=== PATIENT | male | born 1940 | race Caucasian/White ===

== ENCOUNTER 2024-02-18 21:18 | Emergency (ER) | payer MEDICARE, OTHER, SELFPAY ==
[2024-02-18 21:18] VITALS: BMI 24.2
[2024-02-18 21:24] VITALS: BP 165/90
[2024-02-19 00:35] VITALS: BP 169/90
[2024-02-19 01:00] VITALS: BP 171/80
--- NOTE | 2024-02-19 01:03 | ED.GENMED ---
History of Present Illness
<ARTEMIO Cisneros (Lenka) - Last Filed: 02/19/24 02:31>
General
Chief Complaint: Anal/Rectal Problem
Source: patient and spouse
Exam Limitations: none
Time Seen by Provider: 02/19/24 01:03
Nursing documentation reviewed up to this point in time: agreed with
History of Present Illness
History of Present Illness:
Pt is an 83yo male with PMHx of renal cyst s/p nephrectomy and BPH who presents to the ED with concerns for rectal bleeding at 1999 tonight. Pt states that he has been unable to defecate x 4d, prior to that stools were normal consistency. He
typically has one BM/day. 1d ago (02/16) he took Metamucil with no relief. During the day today (02/17), he took three 5mg bisacodyl tablets, with no relief. Tonight at 1999 he tried an OTC fleet enema. He felt burning with injection of the saline and
then noted red blood on the toilet paper. He denies extreme tearing pain, continued pain with defecation, gushing of blood, black tarry stool, no BM with the fleet, denies filling the toilet bowl with blood. He found a pad and wore in on his way to
the ED, pad with streaks of blood, not soaked. Pt wiped in the bathroom in the ED, stated no more red streaks on toilet paper. No fevers, chills, chest pain, dyspnea, abdominal pain or cramping, changes in urinary habits, swelling of the extremities.
He admits to having both internal and external hemorrhoids in the past
.
Last colonoscopy ~ 6 years ago at [place]. Has had polyps removed.
Has had inguinal hernia repairs and nephrectomy, no other abdominal surgeries.
Past History
<ARTEMIO Cisneros (Lenka) - Last Filed: 02/19/24 02:31>
Past History
ED Past Medical History: Other (Benign prostatic hypertrophy)
ED Past Surgical History: Other (nephrectomy, inguinal hernia repair (L))
Social History
Personal:
Living: with family
Employment: Employed
Phy Exam
<ARTEMIO Cisneros (Lenka) - Last Filed: 02/19/24 02:31>
General Physical Exam
General Presentation: well appearing and no apparent distress
General age: appears stated age
General Skin: warm and dry
General Habitus: normal
General Mental: alert
General Hydration: appears well hydrated
Cardiovascular Exam
Cardiovascular Exam: regular rate/rhythm, no edema, no gallop, no murmur and normal peripheral pulses
Pulmonary Exam
Pulmonary Exam: lungs clear, no respiratory distress, no rales, no rhonchi, no wheezing and no cough
Gastrointestinal Exam
Gastrointestinal Exam: non tender, soft, no pulsatile mass, non distended and guarding (pt guarding but denies pain or tenderness with light/deep palpation)
Palpation: left upper quadrant: No tenderness, left lower quadrant: No tenderness, right upper quadrant: No tenderness and right lower quadrant: No tenderness
Auscultation of Abdomen: hyperactive
Musculoskeletal Exam
Musculoskeletal Exam: full ROM
Skin Exam
Skin Exam: normal color, warm/dry and no rash
Course
<ARTEMIO Cisneros (Lenka) - Last Filed: 02/19/24 02:31>
Orders/Labs/Results
Orders:
Orders
02/19/24 02:18
Complete Blood Count/With Diff Urgent
Comprehensive Metabolic Panel Urgent
Lipase Urgent
PTT Urgent
Prothrombin Time Urgent
02/19/24 02:24
CR Obstruct Series W/pa Chest Urgent
Comment:
Reason For Exam: constipation
02/19/24 03:29
Enema- Treatment ONCE
Type: Milk of Molasses
Abnormal Lab Results
02/19/24
02:18
RBC 3.69 L 10^6/uL
(4.70-6.10)
Hgb 11.7 L g/dL
(13.0-18.0)
Hct 33.4 L %
(39.0-52.0)
MCH 31.7 H pg
(27.0-31.0)
BUN 31 H mg/dl
(9-20)
Total Protein 5.9 L g/dl
(6.3-8.2)
02/19/24 02:18
02/19/24 02:18
Vital Signs
Initial and Last Documented VS:
Initial Vital Signs
Temp Pulse Resp BP Pulse Ox
98.3 F 76 18 165/90 98
02/18/24 21:24 02/18/24 21:24 02/18/24 21:24 02/18/24 21:24 02/18/24 21:24
Last Documented Vital Signs
Temp Pulse Resp BP Pulse Ox
98.3 F 76 18 159/80 95
02/18/24 21:24 02/18/24 21:24 02/18/24 21:24 02/19/24 03:00 02/19/24 05:15
<Aravind Alan, DO - Last Filed: 02/19/24 05:30>
Orders/Labs/Results
Orders:
Orders
02/19/24 02:18
Complete Blood Count/With Diff Urgent
Comprehensive Metabolic Panel Urgent
Lipase Urgent
PTT Urgent
Prothrombin Time Urgent
02/19/24 02:24
CR Obstruct Series W/pa Chest Urgent
Comment:
Reason For Exam: constipation
02/19/24 03:29
Enema- Treatment ONCE
Type: Milk of Molasses
Abnormal Lab Results
02/19/24
02:18
RBC 3.69 L 10^6/uL
(4.70-6.10)
Hgb 11.7 L g/dL
(13.0-18.0)
Hct 33.4 L %
(39.0-52.0)
MCH 31.7 H pg
(27.0-31.0)
BUN 31 H mg/dl
(9-20)
Total Protein 5.9 L g/dl
(6.3-8.2)
02/19/24 02:18
02/19/24 02:18
Vital Signs
Initial and Last Documented VS:
Initial Vital Signs
Temp Pulse Resp BP Pulse Ox
98.3 F 76 18 165/90 98
02/18/24 21:24 02/18/24 21:24 02/18/24 21:24 02/18/24 21:24 02/18/24 21:24
Last Documented Vital Signs
Temp Pulse Resp BP Pulse Ox
98.3 F 76 18 159/80 95
02/18/24 21:24 02/18/24 21:24 02/18/24 21:24 02/19/24 03:00 02/19/24 05:15
<ARTEMIO Cisneros (Lenka) - Last Filed: 02/19/24 02:31>
MDM/Problems Addressed
Differential Diagnosis Includes:
DDx: constipation vs internal hemorrhoid vs bowel obstruction
Will obtain CBC, CMP, lipase, PT/PTT
<ARTEMIO Cisneros (Lenka) - Last Filed: 02/19/24 02:31>
*Pulse Oximetry
Patient hypoxic: no
*Critical Care Note
Total Time (30-74mins, 75-104mins- exclusive of procedures): Not Applicable
ED Attending Note
<ARTEMIO Cisneros (Lenka) - Last Filed: 02/19/24 02:31>
-
Portions of this chart may have been created with voice recognition software.� Occasional wrong word or��sound alike� substitutions may have occurred due to the inherent limitations of voice recognition software.
<Aravind Alan DO - Last Filed: 02/19/24 05:30>
ED Attending Note
Patient seen and examined by attending physician: Yes
I performed the substantive portion of visit, reviewed & personally made and approve the management plan that is documented in note by myself or AMINA.: Yes
ED Attending Note:
Pleasant 83-year-old male presents with rectal bleeding that began around 8 PM tonight shortly after applying a fleets enema. Patient has a complaint of constipation. He has unable to have a bowel movement for 4 days. Patient tried Metamucil
without relief. Tonight he tried an tqgj-[id number] fleets enema and felt burning. He noticed bright red blood on his toilet. He had a brief episode of brisk bleeding but then not stopped. Patient currently has no bleeding complaint. He still
states that he cannot have a bowel movement. Denies fever or chills. Patient was seen in conjunction with the PA student. I have reviewed and agree with the history and treatment plan presented. On my independent physical exam, patient is awake,
alert, and oriented x3, minimal acute distress. Heart is regular rate and rhythm. Lungs are clear to auscultation without respiratory distress. Abdomen is soft with mild tenderness to palpation diffusely. Hyperactive bowel sounds present. Moves
all 4 extremities. Skin is warm and dry.
Plan is to get a obstruction series. Possible enema.
02/19/2024 0330 AM: Obstruction series negative for obstruction.
02/19/2024 0528 AM: Patient had a large bowel movement. He is feeling much better and is ready for discharge.
Discharge Plan
Departure
Patient Disposition: Home (Routine Discharge)
Date of Disposition: 02/19/24
Time of Disposition: 05:28
Patient with high blood pressure during this ER visit?: Yes
Condition: Good
Discharge Problem:
Constipation, Abdominal pain
Instructions: Constipation, Adult ED
Prescriptions:
No Action
tamsulosin [Flomax] 0.4 mg Capsule
0.8 mg PO HS
Referrals:
Jake Rodríguez MD [Family Provider] -
Activity Restrictions/Additional Instructions:
Please take Colace [id number] as directed
It was a pleasure meeting you and taking part in your care. We hope for your continued healing and wellness.
Please read discharge instructions in their entirety. However, they are for general education and may not describe your exact diagnosis at discharge. Information on your ER visit and medical conditions were discussed with you along with appropriate
follow up information...
If indicated, please take your medications as instructed and indicated on discharge paperwork.
Please schedule a follow up appointment as directed. Call to schedule an appointment
Please return to the emergency department with ANY change in, persisting, or worsening of symptoms. If any of your symptoms do not improve, or persist, or become more severe within 6-12 hours, please return to the emergency department for further
care.
Please return to the emergency department if you develop a headache, neck pain/stiffness, fever greater than 100.4F, chest pain, shortness of breath, persistent nausea, vomiting, slurred speech, difficulty walking, numbness/tingling, weakness, signs
of infection or any other symptoms that are worrisome to you.
If you have any questions or concerns please do not hesitate to call the Hospital at or E-mail me directly at [email or web address]
Interventions
Interventions:
*Risk Screen - Suicide Last Done: 02/19/24 00:40
*General Assessment Last Done: 02/19/24 00:40
*Neglect/Abuse Screening Last Done: 02/19/24 00:40
ED- Fall Risk Assessment Last Done: 02/19/24 00:44
*ED COVID-19 Vaccine History Last Done: 02/19/24 00:40
IF-Fwisae-Rdtiypujnq Assessment Last Done: 02/19/24 00:42
ED-Skin Assessment Last Done: 02/19/24 00:40
Discharge Date and Time
Print Language: ESTONIAN
[2024-02-19 02:00] VITALS: BP 154/79
[2024-02-19 02:26] LABS: % Basophils 0.3 % (0-2); % Eosinophils 2.6 % (0-6); % Immature Granulocytes 0.3 % (0-0.5); % Lymphocytes 23.6 % (20.5-51.1); % Monocytes 8.4 % (1.7-9.3); % Neutrophils 64.8 % (42.2-75.2); Absolute Eosinophils 0.2 10^3/uL (0-0.7); Absolute Lymphocytes 1.4 10^3/uL (1.2-3.4); Absolute Monocytes 0.5 10^3/uL (0.1-0.6); Absolute Neutrophils 3.8 10^3/uL (1.4-6.5); Hematocrit 33.4 % (39.0-52.0); Hemoglobin 11.7 g/dL (13.0-18.0); Mean Corpuscular Hgb 31.7 pg (27.0-31.0); Mean Corpuscular Volume 90.5 fL (80.0-94.0); Mean Platelet Volume 9.9 fL (7.4-10.4); Nucleated Red Blood Cells % 0 % (-); Platelet Count 167 10^3/uL (130-400); Red Blood Cell Count 3.69 10^6/uL (4.70-6.10); White Blood Cell Count 5.8 10^3/uL (4.8-10.8)
[2024-02-19 02:35] LABS: INR 1.06; PT 13.8 Sec (11.4-14.6)
[2024-02-19 02:36] LABS: APTT 29.5 Sec (23.4-35.0)
[2024-02-19 02:51] VITALS: BP 164/87
[2024-02-19 03:00] VITALS: BP 159/80
[2024-02-19 03:02] LABS: ALT (SGPT) 19 U/L (0-50); AST (SGOT) 29 U/L (17-59); Albumin 3.7 g/dl (3.5-5.0); Alkaline Phosphatase 86 U/L (38-126); Blood Urea Nitrogen 31 mg/dl (9-20); Calcium 9.1 mg/dl (8.4-10.2); Carbon Dioxide 28 mmol/L (22-30); Chloride 103 mmol/L (98-107); Estimated Creatinine Clearance 46 ml/min; Glucose 98 mg/dl (70-99); Lipase 70 U/L (23-300); Potassium 4.4 mmol/L (3.5-5.1); Sodium 140 mmol/L (135-145); Total Bilirubin 0.6 mg/dl (0.2-1.3); Total Protein 5.9 g/dl (6.3-8.2); eGFR 55.19
[2024-02-19 05:40] VITALS: BP 174/102
== END 2024-02-19 05:50 | disposition home or self-care (01) ==
LOC: EMR 21:18
PROVIDERS: EMERGENCY PHYSICIAN Student in an Organized Health Care Education/Training Program; FAMILY PHYSICIAN Internal Medicine
DX: R10.9 Unspecified abdominal pain (principal); K59.00 Constipation, unspecified
CPT/HCPCS: 99284; 74022; 80053; 83690; 85025; 85610; 85730

== ENCOUNTER 2024-02-28 04:47 | Emergency (ER) | payer MEDICARE, OTHER, SELFPAY ==
[2024-02-28 04:49] VITALS: BP 168/94
[2024-02-28 05:16] VITALS: BMI 22.8
[2024-02-28 05:20] VITALS: BP 156/92
[2024-02-28 06:13] VITALS: BP 169/79
--- NOTE | 2024-02-28 06:29 | ED.GENMED ---
History of Present Illness
General
Chief Complaint: Bowel Problem
Time Seen by Provider: 02/28/24 06:20
History of Present Illness
History of Present Illness:
HPI: The patient presents with sensation of constipation also has rectal pain. He was seen here over a week ago with similar symptoms successfully treated with an enema. He has noticed abdominal discomfort.
EXAM:
GENERAL: Well appearing in no distress
HEENT: Moist oral mucosa
ABDOMEN: Soft with no peritoneal signs, no tenderness, he has an empty rectal vault on digital rectal examination, small external hemorrhoids are noted
NEUROLOGIC: Excellent strength all extremities, no coordination deficits
PSYCHIATRIC: Appropriate mental status, normal insight and judgement
EXTREMITIES: Nontender, no edema, moves all extremities equally
SKIN: No rash, no lesions
TIME OF INITIAL ENCOUNTER: 6:30 AM
NUMBER AND COMPLEXITY OF PROBLEMS ADDRESSED AT THE ENCOUNTER
� Chronic conditions affecting care: Has had problems with constipation in the past, has had a nephrectomy
� Acute Exacerbation and/or Progression of Chronic Illness: This is an acute but recurrent problem
� Differential Diagnosis includes: Constipation, rectal fecal impaction
AMOUNT AND/OR COMPLEXITY OF DATA TO BE REVIEWED AND ANALYZED
� I performed an independent evaluation of and my interpretation is:
EKG:
CT:
X-rays: I personally viewed chest and abdomen x-ray which shows nonspecific bowel gas pattern with no evidence of obstruction
Laboratory Studies:
Other:
� Review of other/old records: I reviewed old records, the patient was seen here in 02/19/2024 and was treated with a milk of molasses enema successfully
� Clinical information was obtained by an independent historian: I spoke to at bedside
� Prescriptions/Medications Considered but not given:
� Further testing considered but not performed:
RISK OF COMPLICATIONS AND/OR MORBIDITY OR MORTALITY OF PATIENT MANAGEMENT
� Social determinants of health affecting care: Lives at home
� Discussion with other providers:
� Escalation of care including admission/observation vs risk of discharge considered: On digital rectal examination, the patient has an empty rectal vault. Will proceed with enema. X-ray is shows no obstruction but does show
increased stool in the proximal colon. The patient had 2 large bowel movements in the ED and feels markedly improved..
Past History
Past History
ED Past Medical History: Other (Benign prostatic hypertrophy)
ED Past Surgical History: Other (nephrectomy, inguinal hernia repair (L))
Social History
Personal:
Living: with family
Employment: Employed
Phy Exam
Physical Exam
Physical Exam:
See HPI
Course
Orders/Labs/Results
Orders:
Orders
02/28/24 05:41
CR Obstruct Series W/pa Chest Urgent
Comment:
Reason For Exam: Constipation/pain
02/28/24 06:35
Enema- Treatment ONCE
Type: Milk of Molasses
Vital Signs
Initial and Last Documented VS:
Initial Vital Signs
Temp Pulse Resp BP Pulse Ox
98.7 F 79 18 168/94 95
02/28/24 04:49 02/28/24 04:49 02/28/24 04:49 02/28/24 04:49 02/28/24 04:49
Last Documented Vital Signs
Temp Pulse Resp BP Pulse Ox
98.7 F 79 18 169/79 90
02/28/24 04:49 02/28/24 04:49 02/28/24 04:49 02/28/24 06:13 02/28/24 06:30
*Critical Care Note
Total Time (30-74mins, 75-104mins- exclusive of procedures): Not Applicable
ED Attending Note
-
Portions of this chart may have been created with voice recognition software.� Occasional wrong word or��sound alike� substitutions may have occurred due to the inherent limitations of voice recognition software.
Discharge Plan
Departure
Prescriptions:
No Action
tamsulosin [Flomax] 0.4 mg Capsule
0.8 mg PO HS
Referrals:
UNKNOWN - PT DOES,NOT KNOW [Family Provider] -
Interventions
Interventions:
*Risk Screen - Suicide Last Done: 02/28/24 05:16
*General Assessment Last Done: 02/28/24 04:55
*Neglect/Abuse Screening Last Done: 02/28/24 04:54
ED- Fall Risk Assessment Last Done: 02/28/24 05:17
*ED COVID-19 Vaccine History Last Done: 02/28/24 04:54
QO-Nrcibi-Jjzgynsnvu Assessment Last Done: 02/28/24 05:12
Discharge Date and Time
Print Language: YORUBA
== END 2024-02-28 07:10 | disposition home or self-care (01) ==
LOC: EMR 04:47
PROVIDERS: EMERGENCY PHYSICIAN Emergency Medicine
DX: K59.00 Constipation, unspecified (principal)
CPT/HCPCS: 99283; 74022

== ENCOUNTER 2024-12-27 14:52 | Emergency (ER) | payer MEDICARE, OTHER, SELFPAY ==
[2024-12-27 14:58] VITALS: BP 166/96
[2024-12-27 18:17] VITALS: BP 140/81; BMI 26.7
--- NOTE | 2024-12-27 18:50 | ED.GENMED ---
History of Present Illness
General
Chief Complaint: Skin Surface Trauma
Source: patient and spouse
Exam Limitations: none
Time Seen by Provider: 12/27/24 16:38
Nursing documentation reviewed up to this point in time: agreed with
History of Present Illness
History of Present Illness:
Patient presents to ED secondary to left middle finger injury, which occurred at home, when it was cut accidentally with a notch grinder. Patient's vaccinations up-to-date, including tetanus vaccination. Denies any other injury. Patient is right-handed.
Past History
Past History
ED Past Medical History: Other (Benign prostatic hypertrophy)
ED Past Surgical History: Other (nephrectomy, inguinal hernia repair (L))
Social History
Personal:
Living: with family
Employment: Employed
Review of Systems
Review of Systems
Allergies reviewed?: Yes
All Other Systems: ROS reviewed and negative except as documented in HPI and ROS
Constitutional: Reports no symptoms
Musculoskeletal: Reports no symptoms
Skin: Reports other (finger laceration)
Neurological: Reports no symptoms; Denies weakness or numbness
Phy Exam
Physical Exam
Physical Exam:
Physical Exam
General: no apparent distress, not acutely ill. afebrile
Head: nc/at. eomi
Neck: supple. normal range of motion
Neuro: alert and oriented x 3. no focal neurological deficits
Skin: left prox 3rd phalanx along volar surface, an approx 3cm x 2cm area of avusion/laceration, without active bleeding
Psychiatric: well kept. interactive and cooperative
Extremities: no edema. no calf tenderness.
Course
Orders/Labs/Results
Orders:
Orders
12/27/24 16:49
CR Finger(s)/thumb Min 2 Vw Lt Urgent
Comment:
Reason For Exam: trauma w laceration
Indicate Which Finger:: Middle Finger
12/27/24 16:50
Acetaminophen [Tylenol] 650 mg PO NOW STA
12/27/24 18:50
Cephalexin Monohydrate [Keflex] 500 mg PO NOW STA
Vital Signs
Initial and Last Documented VS:
Initial Vital Signs
Temp Pulse Resp BP Pulse Ox
98.1 F 79 15 166/96 97
12/27/24 14:58 12/27/24 14:58 12/27/24 14:58 12/27/24 14:58 12/27/24 14:58
Last Documented Vital Signs
Temp Pulse Resp BP Pulse Ox
98.5 F 82 20 140/81 98
12/27/24 18:17 12/27/24 18:17 12/27/24 18:17 12/27/24 18:17 12/27/24 18:50
Procedures
Laceration Closure
Left Proximal Volar Third Finger:
Status of Wound: clean
Size of Wound in cm: 3
Description of Wound Edges: sharp
Preparation: cleaned with SurClens
Anesthesia: 1% Lidocaine
Revision/Debridement: debrided
Type of Closure: single layer closure
Skin Closure Material: 5-0 vicryl
Number of sutures: 2
MDM/Problems Addressed
MDM/Problems Addressed:
X-ray report reviewed.
As there is significant loss of skin, unable to provide any suture repair. However, as there is some disruption in the underlying muscle layer, decision made to place 2 absorbable 5.0 Vicryl sutures, followed by bulky dressing. Advised to
follow-up with PCP for reevaluation. In light of open wound with potential contamination, patient will be started on Keflex prophylactically for 3 days.
*Pulse Oximetry
SaO2: 98
Oxygen Mode of Delivery: Room air
Patient hypoxic: no
*Critical Care Note
Total Time (30-74mins, 75-104mins- exclusive of procedures): Not Applicable
ED Attending Note
-
Portions of this chart may have been created with voice recognition software.� Occasional wrong word or��sound alike� substitutions may have occurred due to the inherent limitations of voice recognition software.
Discharge Plan
Departure
Patient Disposition: Home (Routine Discharge)
Date of Disposition: 12/27/24
Time of Disposition: 18:50
Patient with high blood pressure during this ER visit?: Yes
Condition: Good
Discharge Problem:
Avulsion of finger
Instructions: Laceration Repair With Stitches (DC)
Prescriptions:
New
cephalexin 500 mg capsule
500 mg PO TID Qty: 8 0RF
No Action
tamsulosin [Flomax] 0.4 mg Capsule
0.8 mg PO HS
Referrals:
Jake Rodríguez MD [Family Provider, Internal Medicine]
Activity Restrictions/Additional Instructions:
As discussed, please follow-up with your primary care physician for reevaluation next week or consider return to ED with worsening symptoms. Your prescription has been sent electronically to [facility] pharmacy in [place].
Interventions
Interventions:
*Risk Screen - Suicide Last Done: 12/27/24 14:58
*General Assessment Last Done: 12/27/24 14:58
*Neglect/Abuse Screening Last Done: 12/27/24 14:58
*ED- Fall Risk Assessment Last Done: 12/27/24 18:17
*ED COVID-19 Vaccine History Last Done: 12/27/24 14:58
*Nursing Disposition Last Done: 12/27/24 19:14
ED-Skin Assessment Last Done: 12/27/24 18:17
Discharge Date and Time
Discharge Date/Time: 12/27/24 19:14
Print Language: INDONESIAN
[2024-12-27] MEDS: KEFLEX 500 MG PO (19:03)
== END 2024-12-27 19:14 | disposition home or self-care (01) ==
LOC: EMR 14:52
PROVIDERS: EMERGENCY PHYSICIAN Emergency Medicine; FAMILY PHYSICIAN Internal Medicine
DX: S61.213A Laceration without foreign body of left middle finger without damage to nail, initial encounter (principal); X58.XXXA Exposure to other specified factors, initial encounter; N40.0 Benign prostatic hyperplasia without lower urinary tract symptoms; Z90.5 Acquired absence of kidney
CPT/HCPCS: 99283; 12002; 73140